=== PATIENT | male | born 1985 | race Caucasian/White ===

== ENCOUNTER 2018-02-02 12:25 | Day surgery (SDC) | payer BC ==
[~2018-02-02 12:25] MED LIST: CEFAZOLIN 1 GM/50 ML (PMX) 50 ML IVPB; DEXAMETHASONE 4 MG/ML 1 ML INJ; ONDANSETRON 4 MG INJ; SOD CHLORIDE 0.9% 1,000 ML IV
[2018-02-02 13:21] LABS: ADD MAN DIFF? NO
[2018-02-02 13:24] LABS: BASOPHILS % 0.4 % (0.0-2.0); EOSINOPHILS # 0.1 10^3/ul (0.0-0.5); EOSINOPHILS % 0.9 % (0.0-7.0); HEMATOCRIT 44.5 % (42.0-52.0); HEMOGLOBIN 14.9 g/dl (14.0-18.0); LYMPHOCYTES # 2.4 10^3/ul (0.8-2.9); LYMPHOCYTES % 34.7 % (15.0-51.0); MEAN CORPUSCULAR HEMOGLOBIN 31.3 pg (29.0-33.0); MEAN CORPUSCULAR HGB CONC 33.5 g/dl (32.0-37.0); MEAN CORPUSCULAR VOLUME 93.5 fl (82.0-101.0); MEAN PLATELET VOLUME 8.9 fl (7.4-10.4); MONOCYTE # 0.4 10^3/ul (0.3-0.9); NEUTROPHIL # 4.1 10^3/ul (1.6-7.5); NEUTROPHILS % 57.7 % (39.0-77.0); PLATELET COUNT 231 10^3/UL (140-415); RED BLOOD COUNT 4.76 10^6/ul (4.70-6.10); RED CELL DISTRIBUTION WIDTH 11.7 % (11.5-14.5)
[2018-02-02] MEDS: LACTATED RINGER'S 1,000 ML IV (13:30)
[2018-02-02 13:43] LABS: INR 1.08; PARTIAL THROMBOPLASTIN TIME 26.3 Sec (23.0-35.0); PROTIME 14.1 Sec (11.9-14.9); PT RATIO 1.1
[2018-02-02 13:46] LABS: ALANINE AMINOTRANSFERASE 66 IU/L (13-69); ALBUMIN/GLOBULIN RATIO 1.37; ALKALINE PHOSPHATASE 77 IU/L (42-121); ANION GAP 8 (8-16); ASPARTATE AMINO TRANSFERASE 45 IU/L (15-46); BILIRUBIN,INDIRECT 0.3 mg/dl (0-1.1); BILIRUBIN,TOTAL 0.3 mg/dl (0.2-1.3); CALCIUM 9.3 mg/dl (8.4-10.2); CARBON DIOXIDE 29 mmol/L (21-31); CHLORIDE 109 mmol/L (97-110); CREATININE 0.84 mg/dl (0.61-1.24); GLUCOSE 100 mg/dl (70-220); SODIUM 142 mmol/L (135-144); TOTAL PROTEIN 6.9 g/dl (6.1-8.1)
[2018-02-02 13:47] LABS: BLOOD UREA NITROGEN 15 mg/dl (7-20)
[2018-02-02] MEDS ORDERED: MIDAZOLAM 1 MG/ML 2 ML INJ (14:36)
[2018-02-02] MEDS ORDERED: METOCLOPRAMIDE 10 MG INJ (14:39)
[2018-02-02] MEDS ORDERED: ONDANSETRON 4 MG INJ IV (15:00)
[2018-02-02] MEDS ORDERED: FENTAnyl 50 MCG/ML VIAL IV ×2 (15:00)
[2018-02-02] MEDS ORDERED: HYDROmorphONE 1 MG/5 ML IV SYRINGE IV ×2 (15:00)
[2018-02-02] MEDS ORDERED: MEPERIDINE 25 MG INJ IV (15:00)
[2018-02-02] MEDS ORDERED: DIPHENHYDRAMINE 50 MG INJ IV (15:00)
[2018-02-02] MEDS ORDERED: KETOROLAC 30 MG INJ IV (15:00)
[2018-02-02] MEDS ORDERED: FENTAnyl 50 MCG/ML VIAL (15:34)
[2018-02-02] MEDS ORDERED: PROPOFOL 20 ML (15:50)
[2018-02-02] MEDS ORDERED: LIDOCAINE 2% (SDV) 5 ML INJ (15:50)
[2018-02-02] MEDS ORDERED: CEFAZOLIN 1 GM INJ (15:50)
[2018-02-02] MEDS: BUPIVACAINE 0.25% (MPF) 30 ML INJ (16:06)
[2018-02-02] MEDS: HYDROCODONE/APAP (5/325) TAB PO (16:30)
== END 2018-02-02 18:35 | disposition home or self-care (01) ==
LOC: SDS 12:25
DX: D17.1 Benign lipomatous neoplasm of skin and subcutaneous tissue of trunk (principal); D17.23 Benign lipomatous neoplasm of skin and subcutaneous tissue of right leg; D17.22 Benign lipomatous neoplasm of skin and subcutaneous tissue of left arm
CPT/HCPCS: 14000; 80053; 85025; 85610; 85730; 88307